=== PATIENT | female | born 1970 | race Caucasian/White ===

== ENCOUNTER 2023-01-16 15:14 | Outpatient (OUT) | payer OTHER, SELFPAY ==
--- NOTE | 2023-01-16 15:48 | XR_ITS ---
The [address] [address] Patient Name: LILIANE IRAHETA MRN: [id number] date: 1970 Sex: F Assigned Patient Location: [facility] Current Patient Location: Accession/Order Number: [id number] Exam Date: 01/16/2023 15:48 Report Date: 01/17/2023 08:19 At the request of: CYNTHIA HARKINS Procedure: XR foot LT min 3V PROCEDURE: XR foot LT min 3V HISTORY: LEFT FOOT PAIN COMPARISON: None. FINDINGS: BONES:No fracture, acute abnormality, or significant arthropathy. SOFT TISSUES:No visible soft tissue swelling. EFFUSION:None visible. OTHER: Negative. XR/XR foot LT min 3V IMPRESSION: 1. No acute bone abnormality or significant degenerative changes. Electronically authenticated by: FORREST ORELLANA Date: 01/17/2023 08:19
== END 2023-01-16 15:15 | disposition home or self-care (01) ==
PROVIDERS: Visit Provider Podiatrist Foot & Ankle Surgery
DX: M79.672 Pain in left foot (principal)
CPT/HCPCS: 73630

== ENCOUNTER 2023-02-01 15:48 | Outpatient (OUT) | payer OTHER, SELFPAY ==
--- NOTE | 2023-02-01 15:53 | MR_ITS ---
The [address] [address] Patient Name: LILIANE IRAHETA MRN: [id number] date: 1970 Sex: F Assigned Patient Location: MRI Current Patient Location: Accession/Order Number: [id number] Exam Date: 02/01/2023 16:00 Report Date: 02/02/2023 00:37 At the request of: CYNTHIA HARKINS Procedure: MR foot LT wo con EXAM: MR foot LT wo con HISTORY: Sesamoiditis, Heillux Limitus COMPARISON: 01/16/2023 radiograph TECHNIQUE: MRI images obtained with multiple sequences. Noncontrast MRI of the left foot. Sequences obtained by standard department protocol. FINDINGS: Normal alignment of the bones of the foot. No significant joint degeneration. Lisfranc ligament is intact. Extensor, flexor and peroneal tendons are intact. Anterior and posterior syndesmotic ligaments are intact. Anterior talofibular, posterior talofibular and calcaneofibular ligaments are intact. Achilles tendon and plantar fascia are intact. No ankle joint effusion. No definitive acute bone marrow edema. There is limitation to the examination for evaluation of bone marrow edema due to the lack of STIR imaging. No acute bone marrow edema of the sesamoid bones or about the first metatarsophalangeal joint. MR/MR foot LT wo con IMPRESSION: 1. No acute tendinous or ligamentous abnormality of the foot. No significant joint degeneration. 2. Normal alignment of the bones of the foot. 3. No definitive acute bone marrow edema. There is limitation to the examination for evaluation of bone marrow edema due to the lack of STIR sequence. Electronically authenticated by: PIERRE CANADA Date: 02/02/2023 00:37
== END 2023-02-01 15:49 | disposition home or self-care (01) ==
LOC: MRI 15:48
PROVIDERS: Visit Provider Podiatrist Foot & Ankle Surgery
DX: M25.561 Pain in right knee (principal); M25.872 Other specified joint disorders, left ankle and foot
CPT/HCPCS: 73560; 73718

== ENCOUNTER 2023-02-01 16:00 | Outpatient (OUT) | payer OTHER, SELFPAY ==
--- NOTE | 2023-02-01 16:38 | XR_ITS ---
The [address] [address] Patient Name: LILIANE IRAHETA MRN: [id number] date: 1970 Sex: F Assigned Patient Location: [facility] Current Patient Location: MRI Accession/Order Number: [id number] Exam Date: 02/01/2023 16:42 Report Date: 02/02/2023 05:51 At the request of: RUBY JEFFERSON Procedure: XR knee RT 2V EXAM: XR knee RT 2V HISTORY: right lateral knee pain; M25.561 COMPARISON: None. TECHNIQUE: 2 views of the right knee were obtained. FINDINGS: No acute fracture or dislocation is seen. The joint spaces are preserved. There is no significant right knee joint effusion. XR/XR knee RT 2V IMPRESSION: 1. No acute or significant abnormality of the right knee is seen. If there is concern for internal derangement, a nonemergent outpatient MRI is recommended. Electronically authenticated by: Jamar IRIZARRY Date: 02/02/2023 05:51
== END 2023-02-01 16:01 | disposition home or self-care (01) ==
LOC: RAD 16:02
DX: M25.561 Pain in right knee (principal)
CPT/HCPCS: 73560

== ENCOUNTER 2023-04-23 14:27 | Outpatient (OUT) | payer OTHER, SELFPAY ==
--- NOTE | 2023-04-23 14:34 | ECG_ITS ---
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
--- NOTE | 2023-04-23 15:14 | P.GSHP_ITS ---
History of Present Illness History of Present Illness Chief complaint: other specified joint disorders left foot Narrative: Patient presents for preadmission testing. Please see HPI from Dr. Mcdonough dated 04/11/2023. Review of Systems ROS Narrative Please see ROS from Dr. Mcdonough dated 04/11/2023. [facility] Medical History (Updated 04/23/23 @ 15:17 by Carmen Ibrahim NP) Other specified joint disorders, left ankle and foot ?M25.872 - Other specified joint disorders, left ankle and foot (ICD-10) Toe deformity ?M20.60 - Acquired deformities of toe(s), unspecified, unspecified foot (ICD- 10) Left foot pain ?M79.672 - Pain in left foot (ICD-10) Carpal tunnel syndrome ?G56.00 - Carpal tunnel syndrome, unspecified upper limb (ICD-10) Back pain ?M54.9 - Dorsalgia, unspecified (ICD-10) DDD (degenerative disc disease) Insomnia ?G47.00 - Insomnia, unspecified (ICD-10) Migraine ?G43.909 - Migraine, unspecified, not intractable, without status migrainosus (ICD-10) Heartburn ?R12 - Heartburn (ICD-10) Heart murmur ?R01.1 - Cardiac murmur, unspecified (ICD-10) Surgical History (Updated 04/23/23 @ 14:55 by Carmen Ibrahim NP) H/O oral surgery ?Z98.890 - Other specified postprocedural states (ICD-10) H/O hand surgery ?Z98.890 - Other specified postprocedural states (ICD-10) S/P cubital tunnel release ?Z98.890 - Other specified postprocedural states (ICD-10) History of carpal tunnel release ?Z98.890 - Other specified postprocedural states (ICD-10) History of hysterectomy ?Z90.710 - Acquired absence of both cervix and uterus (ICD-10) Family History (Updated 04/23/23 @ 14:55 by Carmen Ibrahim NP) Other Family history of breast cancer Family history of hypertension Family history of myocardial infarction Social History (Updated 04/23/23 @ 14:49 by Carmen Ibrahim NP) Within the past year, how often did you have a drink containing alcohol: 2-3 times a week Smoking status: Never smoker Non-prescribed substance use: denies use Previous occupational history: Teacher Highest level of school completed/degree received: Bachelor's degree Meds Home Medications and Allergies Home Medications Medication Instructions Recorded Confirmed Type gabapentin 300 mg capsule 300 mg PO QPM 04/23/23 04/23/23 History meloxicam 15 mg tablet 15 mg PO DAILY 04/23/23 04/23/23 History trazodone 50 mg tablet 50 mg PO QPM 04/23/23 04/23/23 History Allergies Allergy/AdvReac Type Severity Reaction Status Date / Time No Known Drug Allergies Allergy Verified 04/23/23 14:45 Exam Narrative Exam Narrative: Constitutional: Awake, alert, comfortable, well-appearing, nontoxic, interactive, vital signs as charted Head: Normocephalic, atraumatic Neck: Supple, normal appearance, normal range of motion, no meningeal signs, no lymphadenopathy Respiratory: No respiratory distress, breath sounds clear Cardiovascular: Regular rate and rhythm, strong and regular heart tones Skin: No rashes or induration, no lesions, only visible skin inspected Neuro: No neurological deficits, normal sensation Psychiatric: Oriented ?3, normal affect Assessment and Plan Assessment and Plan (1) Left foot pain: (2) Toe deformity: (3) Other specified joint disorders, left ankle and foot: Plan Left cheilectomy of 1st metatarsal phalangeal joint with soft tissue balancing as needed scheduled with Dr. Mcdonough 04/26/2023.
[2023-04-23 15:45] LABS: Anion Gap 9.5; BUN Creatinine Ratio 19.1; Carbon Dioxide 31.2 mmol/L (21.0-32.0); Chloride 104 mmol/L (98-107); Estimated GFR (African America >60 (>=60); Estimated GFR (Non-African Ame >60 (>=60); Glucose 70 mg/dL (74-106); Potassium 3.7 mmol/L (3.5-5.1); Sodium 141 mmol/L (136-145)
== END 2023-04-23 14:28 | disposition home or self-care (01) ==
LOC: PST 14:31
PROVIDERS: Visit Provider Podiatrist Foot & Ankle Surgery
DX: Z01.810 Encounter for preprocedural cardiovascular examination (principal); Z01.812 Encounter for preprocedural laboratory examination; Z01.818 Encounter for other preprocedural examination; M25.872 Other specified joint disorders, left ankle and foot; M20.5X2 Other deformities of toe(s) (acquired), left foot
CPT/HCPCS: 80048; 93005; G0463

== ENCOUNTER 2023-04-26 06:33 | Day surgery (SDC) | payer OTHER, SELFPAY ==
[2023-04-23 15:09] VITALS: BP 110/73; PULSE 77; RESP 16; TEMP 36.4; O2SAT 99; BMI 24.7
[2023-04-26] VITALS (13 sets, daily range): BP systolic 119–154; BP diastolic 68–94; PULSE 74–94; RESP 12–22; TEMP 35.8–36.3; O2SAT 96–99
[2023-04-26 06:59] LABS: Glucometer 98 mg/dL (74-106)
[2023-04-26] MEDS: LACTATED RINGER'S SOLUTION 1,000 ML 50 ML IV (07:17)
[2023-04-26] MEDS: CEFAZOLIN SODIUM/DEXTROSE,ISO 2 GM/50 ML PIGGYBACK IV (07:28)
[2023-04-26] MEDS: LIDOCAINE HCL 1% 100 MG/10 ML MDV 20 ML INJ (07:56)
[2023-04-26] MEDS: BUPIVACAINE HCL 0.5% PF 50 MG/10 ML VIAL 20 ML INJ (08:23)
--- NOTE | 2023-04-26 08:44 | XR_ITS ---
The [address] [address] Patient Name: LILIANE IRAHETA MRN: [id number] date: 1970 Sex: F Assigned Patient Location: [facility] Current Patient Location: Accession/Order Number: [id number] Exam Date: 04/26/2023 08:45 Report Date: 04/28/2023 05:23 At the request of: NESS GU Procedure: XR foot LT min 3V PROCEDURE: XR foot LT min 3V HISTORY: Postop x-ray pacu COMPARISON: XR foot left 01/16/2023 FINDINGS: BONES:Bunionectomy. SOFT TISSUES:Soft tissue swelling and small amount of subcutaneous air medial to the head of the first metatarsal and first proximal phalanx consistent with post surgery. EFFUSION:None visible. OTHER: Negative. XR/XR foot LT min 3V IMPRESSION: 1. Left first metatarsal bunionectomy with expected post surgical findings. Electronically authenticated by: FORREST ORELLANA Date: 04/28/2023 05:23
[2023-04-26 08:45] LABS: Glucometer 97 mg/dL (74-106)
--- NOTE | 2023-04-26 09:11 | PM.ORONB ---
Brief Operative Note Date of procedure: 04/26/23 Pre-op diagnosis: left hallux limitus Post-op diagnosis: same as pre-op Procedure: PROCEDURE PERFORMED: left 1st metatarsophalangeal joint cheilectomy INDICATION FOR PROCEDURE: patient is a healthy 53-year-old female has had worsening pain and dysfunction associated with her left great toe. Despite nonoperative treatment including shoe and activity modification, OTC pain medicine such as ibuprofen/Tylenol as well as prednisone taper pain only progressed. We discussed the potential risks and benefits of surgical versus continued nonsurgical treatment. Specifically, we discussed 1st MPJ fusion versus cheilectomy. Given arthritis only seem to involve the extra-articular aspects of the joint believe cheilectomy was a reasonable option and the patient wished to proceed with the above procedures. INTRAOPERATIVE FINDINGS: inflammation and synovitis surrounding the capsule was notable. Cartilage of the 1st MPJ appeared healthy with slight thinning of the dorsal aspect. Dorsal medial exostosis notable. Once the exostosis and diseased cartilage was excised to ninety degrees of dorsiflexion of the great toe was obtained on the table. PROCEDURE IN DETAIL: Patient was identified in pre op and consent was reviewed. Correct side and site were identified and marked. Pre-op antibiotics were started. Patient was brought to OR suite and place on table in a supine position. General anesthesia was administered. Calf tourniquet applied. Operative extremity was prepped and draped in usual sterile fashion. Formal time-out was performed and the foot/ankle were exsanguinated and tourniquet inflated. Incision created over dorsal aspect of the 1st MPJ. Bleeders coagulated. EHL protected throughout the procedure. Capsulotomy performed and McGlammry elevator inserted into 1st MPJ. A saw was used to remove the dorsal lip of the 1st metatarsal head of the dorsal 1st metatarsal head. in addition sagittal saw was used to remove the exostosis on the dorsal medial aspect of the head.ROM on the table showed 90 degrees of dorsiflexion. Any additional exostosis were also removed. The surgical site was irrigated with copious amounts of sterile saline. Absorbable deep sutures were used to close fascia. The tourniquet was dropped and a prompt hyperemic response was noted. Skin was then closed in layers and a dry sterile dressing consisting of Xeroform, 4 x 4's, Kerlix and Paul wrap were applied. Cam boot will be applied in the recovery room. Patient tolerated procedure and anesthesia well and was transferred to the recovery room with vital signs stable and brisk capillary refill to the toes. POSTOPERATIVE PLAN: Discharge home under family's care Post op instructions provided verbally and written prescription(s) were placed in chart Weightbearing as tolerated in cam boot Follow-up in 1-3 week Anesthesia: General-LMA Surgeon: Syed Mcdonough Paradi Operator: William Walter Estimated blood loss (mL): 10 Pathology: other (bone from 1st metatarsal) Condition: stable Disposition: PACU
== END 2023-04-26 09:04 | disposition home or self-care (01) ==
PROVIDERS: Visit Provider Podiatrist Foot & Ankle Surgery
PROC: (CPT 1480; principal; 2023-04-26 07:30)
DX: M25.872 Other specified joint disorders, left ankle and foot (principal); M20.5X2 Other deformities of toe(s) (acquired), left foot; I10 Essential (primary) hypertension; R12 Heartburn; R01.1 Cardiac murmur, unspecified; G47.00 Insomnia, unspecified; Z90.710 Acquired absence of both cervix and uterus; M51.9 Unspecified thoracic, thoracolumbar and lumbosacral intervertebral disc disorder
CPT/HCPCS: 28289; 36415; 73630; 82948; 88304; 88311; 99999; J1094; J2704

== ENCOUNTER 2023-07-25 14:14 | Outpatient (RCR) | payer OTHER, SELFPAY | END 2023-10-16 13:45 | disposition home or self-care (01) | LOC: PT 14:14 | PROVIDERS: Visit Provider Podiatrist Foot & Ankle Surgery | DX: M20.5X2 Other deformities of toe(s) (acquired), left foot (principal) | CPT/HCPCS: 97110; 97112; 97140; 97162; 97164 ==

== ENCOUNTER 2023-12-28 12:16 | Outpatient (OUT) | payer OTHER, SELFPAY ==
--- NOTE | 2023-12-28 | XR_ITS ---
[address] [address] Patient Name: LILIANE IRAHETA MRN: [id number] date: 1970 Sex: F Assigned Patient Location: [facility] Current Patient Location: Accession/Order Number: [id number] Exam Date: 12/28/2023 12:50 Report Date: 01/01/2024 07:25 At the request of: CYNTHIA HARKINS Procedure: XR foot LT min 3V PROCEDURE: XR ankle LT min 3V, XR foot LT min 3V COMPARISON: 04/26/2023 HISTORY: Lt Ankle Pain FINDINGS: BONES:Shave osteotomy medial head of the first metatarsal. No acute fracture or dislocation. Minimal degenerative changes. SOFT TISSUES:Negative. No visible soft tissue swelling. EFFUSION:None visible. OTHER: Negative. XR/XR foot LT min 3V IMPRESSION: No acute abnormality of the foot or ankle Electronically authenticated by: GEMA GRAVES Date: 01/01/2024 07:25
--- NOTE | 2023-12-28 | XR_ITS ---
[address] [address] Patient Name: LILIANE IRAHETA MRN: [id number] date: 1970 Sex: F Assigned Patient Location: [facility] Current Patient Location: Accession/Order Number: [id number] Exam Date: 12/28/2023 12:50 Report Date: 01/01/2024 07:25 At the request of: CYNTHIA HARKINS Procedure: XR ankle LT min 3V PROCEDURE: XR ankle LT min 3V, XR foot LT min 3V COMPARISON: 04/26/2023 HISTORY: Lt Ankle Pain FINDINGS: BONES:Shave osteotomy medial head of the first metatarsal. No acute fracture or dislocation. Minimal degenerative changes. SOFT TISSUES:Negative. No visible soft tissue swelling. EFFUSION:None visible. OTHER: Negative. XR/XR ankle LT min 3V IMPRESSION: No acute abnormality of the foot or ankle Electronically authenticated by: GEMA GRAVES Date: 01/01/2024 07:25
--- OUTSIDE RECORDS SUMMARY | 2023-12-28 12:25 | XMS_ITS | CCD ---
Author Organization [facility] Care Team Providers Care Denture Technician Name Role Phone Rk Osorio Unavailable Provider, Ordering Unavailable JuliannaRamsesew Unavailable Julianna, DO Santi N Primary Care Provider [phone] Julianna, DO Santi N Attending Provider Julianna, DO Santi N Primary Care Provider Julianna, DO Santi N Attending Provider TARSHA Mcdonough Attending Provider [phone] Julianna, DO Santi N Primary Care Provider [phone] Julianna, DO Santi N Attending Provider Julianna, DO Santi N Primary Care Provider Julianna, DO Santi N Primary Care Provider Julianna, DO Santi N Attending Provider Julianna, DO Santi N Primary Care Provider [phone] Julianna, DO Santi N Attending Provider [phone] Julianna, Santi N Admitting Unavailable Julianna, Santi N Primary Care Unavailable Julianna, Santi N Attending Unavailable Julianna, Santi N Admitting Unavailable Julianna, Santi N Primary Care Unavailable Julianna, Santi N Attending Unavailable Julianna, Santi N Admitting Unavailable Julianna, Santi N Primary Care Unavailable Julianna, Santi N Attending Unavailable Julianna, Santi N Admitting Unavailable Julianna, Santi N Primary Care Unavailable Julianna, Santi N Attending Unavailable Julianna, Santi N Primary Care Unavailable Syed Mcdonough Admitting Unavailable Syed Mcdonough Attending Unavailable Santi Levine Primary Care Unavailable Santi Levine Attending Unavailable Santi Levine Admitting Unavailable Medications Current Medications Medication Drug Class(es) Dates Sig (Normalized) Sig (Original) erythromycin 0.005 mg/mg ophthalmic ointment (2 sources) Macrolide, Macrolide Antimicrobial Start: 07-25-2021 Erythromycin 5 MG/GM 1 application into the lower eyelid of affected eye Ophthalmic Four times a day for 10 day(s) Jul, Active fluconazole 150 mg oral tablet (8 sources) Azole Antifungal Start: 10-18-2023 Fluconazole Active 150 MG PO Q3D October 18, 2023 3:42pm may repeat second dose 72 hrs after first dose if symptoms persist Start: 08-28-2023 End: 10-09-2023 Fluconazole Discontinued 150 MG PO Q3D August 28, 2023 12:00am October 09, 2023 10:16am may repeat second dose 72 hrs after first dose if symptoms persist meloxicam 15 mg oral tablet (10 sources) Nonsteroidal Anti-inflammatory Drug take 1 tablet by mouth every twenty-four hours Meloxicam 15 MG 1 tablet Orally Once a day Active nitrofurantoin, macrocrystals 25 mg / nitrofurantoin, monohydrate 75 mg oral capsule (2 sources) Nitrofuran Antibacterial Start: 2023 take 1 capsule by mouth every twelve hours at mealtime Nitrofurantoin Monohyd/M-Cryst (Macrobid) 100 mg capsule Active 100 MG PO Every 12 hours 10 October 18, 2023 12:00am must administer with a meal/food traZODone hydrochloride 50 mg oral tablet (20 sources) Serotonin Reuptake Inhibitor Start: 2023 End: 2023 take 50 mg by mouth once daily at bedtime Trazodone Active 50 MG PO Daily at bedtime August 28, 2023 9:43am take 1 tablet by shonda th every twenty-four hours traZODone HCl 50 MG 1 tablet at bedtime as needed Orally Once a day for 90 days Active Completed/Discontinued Medications Medication Drug Class(es) Dates Sig (Normalized) Sig (Original) aspirin 81 mg delayed release oral tablet (11 sources) Platelet Aggregation Inhibitor, Nonsteroidal Anti-inflammatory Drug Start: 05-08-2023 End: 08-28-2023 take 1 tablet by mouth twice daily Aspirin (Adult Aspirin Regimen) 81 mg tablet,delayed release (DR/EC) Discontinued 81 MG PO Twice daily May 08, 2023 12:00am August 28, 2023 9:17am gabapentin 300 mg oral capsule (20 sources) Anti-epileptic Agent Start: 07-04-2023 End: 08-28-2023 take 1 capsule by mouth once daily Gabapentin Discontinued 0 .ROUTE .COMPLEX July 04, 2023 12:49pm August 28, 2023 9:42am TAKE 1 CAPSULE BY MOUTH ONCE DAILY FOR 30 DAYS WITH 300MG CAPS FOR A TOTAL OF 400MG Start: 07-04-2023 take 1 capsule by mo uth once daily Gabapentin Active 0 .ROUTE .COMPLEX July 04, 2023 12:49pm TAKE 1 CAPSULE BY MOUTH ONCE DAILY FOR 30 DAYS WITH 300MG CAPS FOR A TOTAL OF 400MG Start: 06-08-2023 End: 07-04-2023 Gabapentin Discontinued 100 MG PO Daily June 08, 2023 12:00am July 04, 2023 12:49pm Take 100mg caps along with 300mg caps for total of 400mg caps x 30 days. Start: 05-08-2023 End: 08-28-2023 take 1 capsule by mouth once daily Gabapentin Discontinued 300 MG PO Daily June 08, 2023 11:42am July 30, 2023 8:17am 1 capsule Orally Once a day take 1 capsule by [facility] every twenty-four hours Gabapentin 300 MG 1 capsule Orally Once a day for 90 days Active Gabapentin Activ e methylPREDNISolone acetate 80 mg/ml injectable suspension (2 sources) Corticosteroid Start: 03-08-2023 DEPO-Medrol Feb, 80 mg 24 hr nitroglycerin 0.2 mg/hr transdermal system (16 sources) Nitrate Vasodilator Start: 05-08-2023 End: 08-28-2023 Nitroglycerin Discontinued 1 PATCH TRANSDERML Daily May 08, 2023 12:00am August 28, 2023 9:16am FreeTextSi patch to skin remove after 12 hours Transdermal Once a day; Note: Source Status: Taking; Refills: 0; Provider: Julianna Mark Start: 02-23-2023 Nitroglycerin 0.2 MG/HR 1 patch to skin remove after 12 hours Transdermal Once a day for 30 days Feb, Active ubrogepant 50 mg oral tablet (8 sources) Start: 06-04-2023 End: 08-28-2023 take 1 tablet by mouth once Ubrogepant Discontinued 50 MG PO Once June 04, 2023 12:00am August 28, 2023 9:16am Take 1 tab orally at onset of migraine. Problems Active Problems Problem Classification Problem Date Documented Date Episodic/Chronic Disorders of lipid metabolism (1 source) Mixed hyperlipidemia; Translations: [Mixed hyperlipidemia] Onset: 10-10-2023 Chronic Genitourinary symptoms and ill-defined conditions (3 sources) Other symptoms and signs involving the genitourinary system; Translations: [Other symptoms involving urinary system] Onset: 10-18-2023 10-18-2023 Episodic Joint disorders and dislocations; trauma-related (1 source) Unspecified tear of unspecified meniscus, current injury, right knee, initial encounter Episodic Menopausal disorders (6 sources) Menopausal and female climacteric states; Translations: [Symptomatic menopausal or female climacteric states] Onset: 10-10-2023 10-09-2023 Chronic Miscellaneous mental health disorders (20 sources) Chronic insomnia; Translations: [Psychophysiologic insomnia] Onset: 10-10-2023 Chronic Other aftercare (1 source) Encounter for therapeutic drug level monitoring; Translations: [Encounter for therapeutic drug level monitoring] Onset: 10-10-2023 Episodic Other and unspecified benign neoplasm (9 sources) Melanocytic nevi, unspecified; Translations: [Benign neoplasm of skin, site unspecified] 10-09-2023 Episodic Other connective tissue disease (20 sources) Lateral epicondylitis, left elbow; Translations: [Lateral epicondylitis] Onset: 10-16-2023 Episodic Other connective tissue disease (1 source) Other specified disorders of synovium and tendon, unspecified site Episodic Other connective tissue disease (11 sources) Lateral epicondylitis of left humerus; Translations: [Lateral epicondylitis, left elbow] 05-08-2023 Episodic Other connective tissue disease (2 sources) Pain in left toe(s); Translations: [Pain in limb] 06-08-2023 Episodic Other connective tissue disease (2 sources) Neuralgia and neuritis, unspecified; Translations: [Neuralgia, neuritis, and radiculitis, unspecified] 06-08-2023 Episodic Other nervous system disorders (1 source) Other chronic pain Chronic Other non-traumatic joint disorders (3 sources) Pain in right knee Episodic Other screening for suspected conditions (not mental disorders or infectious disease) (1 source) Encounter for screening mammogram for malignant neoplasm of breast Episodic Spondylosis; intervertebral disc disorders; other back problems (20 sources) Lumbosacral spondylosis; Translations: [Spondylosis without myelopathy or radiculopathy, lumbosacral region] Chronic Sprains and strains (1 source) Strain of other extensor muscle, fascia and tendon at forearm level, left arm, subsequent encounter Episodic Unclassified (1 source) Encounter for screening mammogram for malignant neoplasm of breast; Translations: [Encounter for screening mammogram for malignant neoplasm of breast] Onset: 03-12-2023 Unclassified (1 source) Pain in right knee; Translations: [Pain in right knee] Onset: 03-05-2023 Past or Other Problems Problem Classification Problem Date Documented Da te Episodic/Chronic Inflammation; infection of eye (except that caused by tuberculosis or sexually transmitteddisease) (1 source) Hordeolum externum left upper eyelid Onset: 07-25-2021 Resolved: 07-25-2021 Episodic Unclassified (5 sources) Well adult; 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 Normal [facility] Comment on above: Performed By: #### C UU #### [facility] [address] [place] [address] [place] Alanine aminotransferase [En zymatic activity/volume] in Serum or PlasmaOrdered By: Santi Levine on 10-10-2023 ALT [Catalytic activity/Vol] 20 U/L Normal [facility] Comment on above: Performed By: #### L IPID, CMP, CBC #### [facility] [address] [place] [address] [place] Albumin [Mass/volume] in Ser um or Plasma by Bromocresol green (BCG) dye binding methoOrdered By: Santiwang Levine on 10-10-2023 Albumin BCG dye [Mass/Vol] 4.6 g/dL 3.5-5.[address] [facility] Alkaline phosphatase [Enzyma tic activity/volume] in Serum or PlasmaOrdered By: Santiwang Levine on 10-10-2023 ALP [Catalytic activity/Vol] 58 U/L Normal 34-[address] [facility] Comment on above: Performed By: #### L IPID, CMP, CBC #### [address] Aspartate aminotransferase [ Enzymatic activity/volume] in Serum or PlasmaOrdered By: Santi Levine on 10-10-2023 AST [Catalytic activity/Vol] 19 U/L Normal 13-[address] [facility] Comment on above: Performed By: #### L IPID, CMP, CBC #### [address] Automated basophil %Ordered By: Santi Levine on 10-10-2023 Basophils/100 WBC (Bld) 0.9 % Normal . [facility] Comment on above: Performed By: #### L IPID, CMP, CBC #### [address] Automated basophil countOrde red By: Santi Levine on 10-10-2023 Basophils (Bld) [#/Vol] 0.0 10*3/uL Normal 0.0-0.[address] [facility] Comment on above: Result Comment: PERF ORMED BY: [place] [address] PATHOLOGIST BLOOD DONOR RECRUITER SUPERVISOR ISI NORRIS M.D. Performed By: #### L IPID, CMP, CBC #### [address] Automated blood monocyte cou ntOrdered By: Santi Levine on 10-10-2023 Monocytes (Bld) [#/Vol] 0.4 10*3/uL Normal 0.0-0.[address] [facility] Comment on above: Performed By: #### L IPID, CMP, CBC #### [address] Automated eosinophil %Ordere d By: Santi Levine on 10-10-2023 Eosinophils/100 WBC (Bld) 0.9 % Normal . [facility] Comment on above: Performed By: #### L IPID, CMP, CBC #### [address] Automated eosinophil countOr dered By: Santi Levine on 10-10-2023 Eosinophils (Bld) [#/Vol] 0.0 10*3/uL Normal 0.0-0.[address] [facility] Comment on above: Performed By: #### L IPID, CMP, CBC #### [address] Automated monocyte %Ordered By: Santi Levine on 10-10-2023 Monocytes/100 WBC (Bld) 7.9 % Normal . [facility] Comment on above: Performed By: #### L IPID, CMP, CBC #### [address] Automated neutrophil %Ordere d By: Santi Levine on 10-10-2023 Neutrophils/100 WBC (Bld) 61.0 % Normal . [facility] Comment on above: Performed By: #### L IPID, CMP, CBC #### [address] Bilirubin.total [Mass/volume ] in Serum or PlasmaOrdered By: Santi Levine on 10-10-2023 Bilirubin [Mass/Vol] 0.6 mg/dL Normal 0.3-1.0 [facility] Comment on above: Performed By: #### L IPID, CMP, CBC #### [address] Calcium [Mass/volume] in Ser um or PlasmaOrdered By: Santi Levine on 10-10-2023 Calcium [Mass/Vol] 9.7 mg/dL Normal 8.6-10.3 [facility] Comment on above: Performed By: #### L IPID, CMP, CBC #### [facility] [address] [place] [address] [place] Carbon dioxide, total [Moles /volume] in Serum or PlasmaOrdered By: Santi Levine on 10-10-2023 CO2 [Moles/Vol] 30.8 mmol/L Normal 21.0-31.0 [facility] Comment on above: Performed By: #### L IPID, CMP, CBC #### [facility] [address] [place] [address] [place] Chloride [Moles/volume] in S olamide or PlasmaOrdered By: Santi Levine on 10-10-2023 Chloride [Moles/Vol] 104 mmol/L Normal 98-107 [facility] Comment on above: Performed By: #### L IPID, CMP, CBC #### [facility] [address] [place] [address] [place] Cholesterol [Mass/volume] in Serum or PlasmaOrdered By: Santi Levine on 10-10-2023 Cholesterol [Mass/Vol] 203 mg/dL High 140-200 [facility] Comment on above: Chol less than 200 m g/dl low riskChol 201-239 mg/dl borderline riskChol 240 mg/dl and greater high risk Result Comment: Chol less than 200 mg/dl low risk Chol 201-239 mg/dl borderline risk Chol 240 mg/dl and greater high risk Performed By: #### L IPID, CMP, CBC #### [facility] [address] [place] [address] [place] Cholesterol in LDL Calc [Mas s/Vol]Ordered By: Santi Levine on 10-10-2023 Cholesterol in LDL [Mass/Vol] 120 mg/dL High 0-[address] [facility] Comment on above: LDL ATP III CLASSIFI CATIONLDL less than 100 mg/dL OptimalLDL 100-129 mg/dL Near or above optimalLDL 130-159 mg/dL Borderline highLDL 160-189 mg/dL HighLDL greater than 189 mg/dL Very high Cholesterol in VLDL Calc [Ma ss/Vol]Ordered By: Santi Levine on 10-10-2023 Cholesterol in VLDL [Mass/Vol] 13 mg/dL [facility] Complete Blood Count Auto Di ffon 10-10-2023 Mean Corpuscular HGB Conc 33.5 g/dL Normal 32.0-35.0 [facility] Comment on above: Performed By: #### L IPID, CMP, CBC #### [address] NRBC% 0.3 /100{WBC} Normal 0-0.5 [facility] Comment on above: Performed By: #### L IPID, CMP, CBC #### [address] Comprehensive Metabolic Pane [place] 10-10-2023 Albumin [Mass/Vol] 4.6 g/dL Normal 3.5-5.7 [facility] Comment on above: Performed By: #### L IPID, CMP, CBC #### [address] GFR/1.73 sq M.predicted MDRD (S/P/Bld) [Vol rate/Area] mL/min/{1.73_m2} Normal [facility] Comment on above: Performed By: #### L IPID, CMP, CBC #### [address] Creatinine [Mass/volume] in Serum or PlasmaOrdered By: Santi Levine on 10-10-2023 Creatinine [Mass/Vol] 0.82 mg/dL Normal 0.60-1.20 [facility] Comment on above: Performed By: #### L IPID, CMP, CBC #### [address] Erythrocyte distribution wid th [Ratio] by Automated countOrdered By: Santi Levine on 10-10-2023 Erythrocyte distribution width (RBC) [Ratio] 12.6 % Normal 11.9-15.[address] [facility] Comment on above: Performed By: #### L IPID, CMP, CBC #### [place] [address] [place] Erythrocytes [#/volume] in B lood by Automated countOrdered By: Santi Levine on 10-10-2023 RBC (Bld) [#/Vol] 4.33 10*6/uL Normal 3.60-5.00 [facility] Comment on above: Performed By: #### L KYREE SHANNON, CBC #### [address] Glucose [Mass/volume] in Ser um or PlasmaOrdered By: Santi Levine on 10-10-2023 Glucose [Mass/Vol] 94 mg/dL Normal 70-100 [facility] Comment on above: ADA recommended refe rence rangeRandom Glucose Reference Range is dependent on time and content of last meal. Glucose of more than 200 mg/dL in a nonstressed, ambulatory subject supports the diagnosis of Diabetes Mellitus. Result Comment: [place] om Glucose Reference Range is dependent on time and content of last meal. Glucose of more than 200 mg/dL in a nonstressed, ambulatory subject supports the diagnosis of Diabetes Mellitus. ADA recommended reference range Performed By: #### L KYREE SHANNON, CBC #### [address] Hematocrit [Volume Fraction] of Blood by Automated countOrdered By: Santi Levine on 10-10-2023 Hematocrit (Bld) [Volume fraction] 41.0 % Normal 34.0-46.[address] [facility] Comment on above: Performed By: #### L KYREE SHANNON, CBC #### [address] Hemoglobin [Mass/volume] in BloodOrdered By: Santi Levine on 10-10-2023 Hemoglobin (Bld) [Mass/Vol] 13.7 g/dL Normal 11.8-15.[address] [facility] Comment on above: Performed By: #### L KYREE SHANNON, CBC #### [address] [place] 10-10-2023 L Specimen: [id number] Received: 10/12/23 Status: SOUT Req Num: [id number] Spec Type: Surgical Subm Dr: Santi Levine, DO Tissues: A Skin-Other than Cyst, tag, debridement or plastic repair (LEFT UPPER THIGH) Procedures: HE, Gross/Micro L4 Age/ Patient Sex Location Account Attending Physician Jaimie Coleman 53/F [facility] [id number] Santi Levine DO SPEC NUM: [id number] RECD: 10/12/23 STATUS: VINH HOOKERJorje NUM: [id number] JOSE LUIS: 10/10/[address] [facility] [address]: Santi Levine DO ENTERED: 10/12/[address] [facility] [address]: SPEC TYPE: Surgical DEPT: S ENTERED BY: [id number] RECV BY: [id number] ORDERED: HE, Gross/Micro L4 ORDERED: HE, Gross/Micro L4 Pathological Diagnosis Skin, left upper thigh, shave excision: -Benign lichenoid keratosis (LPLK) -Adequately excised, and no evidence of malignancy or squamous dysplasia identified Clinical Information Changing skin nevus Gross Description The specimen was received in formalin with the patient's name and left upper thigh is a taylor raised shave biopsy measuring 0.6 x 0.5 x 0.2 cm. The resection margin is inked black. The specimen is trisected. The specimen is entirely submitted in cassette A1. Microscopic Description Microscopic examinations are performed supporting the above interpretation ---- Specimen: [id number] Received: 10/12/23 Status: VINH Hookerjorje Num: [id number] Spec Type: Surgical Subm Dr: Santi Levine DO Tissues: A Skin-Other than Cyst, tag, debridement or plastic repair (LEFT UPPER THIGH) Procedures: Everett BROWNE/Serg L4 ---- Patient: Jaimie Coleman [id number] (Continued) ---- Specimen: [id number] Received: 10/12/23 (Continued) Signed (signature on file) Luis A Covington MD 10/15/23 1059 ---- Specimen: [id number] Received: 10/12/23 Status: VINH Thomas Num: [id number] Spec Type: Surgical Subm Dr: Santi Levine DO Tissues: A Skin-Other than Cyst, tag, debridement or plastic repair (LEFT UPPER THIGH) Procedures: Everett BROWNE/Serg Caal ---- Patient: Jaimie Coleman [id number] (Continued) ---- Specimen: [id number] Received: 10/12/23 (Continued) CPT Codes 27879 ---- ---- Specimen: [id number] Received: 10/12/23 Status: VINH Thomas Num: [id number] Spec Type: Surgical Subm Dr: Santi Levine DO Tissues: A Skin-Other than Cyst, tag, debridement or plastic repair (LEFT UPPER THIGH) Procedures: Everett BROWNE/Serg L4 ---- Patient: Jaimie Coleman [id number] (Continued) ---- Signed (signature on file) Doug-Roque Covington MD 10/15/23 1059 Normal [facility] Leukocytes [#/volume] correc immanuel for nucleated erythrocytes in Blood by Automated counOrdered By: Santi Levine on 10-10-2023 WBC corrected for nucl RBC Auto (Bld) [#/Vol] 4.5 10*3/uL 3.8-11.[address] [facility] Leukocytes [#/volume] in Blo od by Automated countOrdered By: Santi Levine on 10-10-2023 WBC (Bld) [#/Vol] 4.5 10*3/uL Normal 3.8-11.6 [facility] Comment on above: Performed By: #### L MIRTHA CMP, CBC #### [facility] [address] Lipid Panelon 10-10-2023 LDL Cholesterol,Calculated 120 mg/dL High 0-100 [facility] Comment on above: Result Comment: LDL ATP III CLASSIFICATION LDL less than 100 mg/dL Optimal LDL 100-129 mg/dL Near or above optimal LDL 130-159 mg/dL Borderline high LDL 160-189 mg/dL High LDL greater than 189 mg/dL Very high Performed By: #### L IPTUAN CMP, CBC #### [facility] [address] Triglyceride w/Reflex 68 mg/dL Normal 0-149 [facility] Comment on above: Result Comment: TRIG ATP III CLASSIFICATION TRIG less than 150 mg/dL Normal TRIG 150-199 mg/dL Borderline high TRIG 200-500 mg/dL High TRIG greater than 500 mg/dL Very high Standard traceable to the Center for Disease Conrtrol and Prevention (CDC) test method. Performed By: #### L IPID, CMP, CBC #### [facility] [address] [place] [id number] [facility] VLDL CHOLESTEROL 13 mg/dL Normal [facility] Comment on above: Performed By: #### L IPID, CMP, CBC #### [address] Lymphocytes [#/volume] in Bl ood by Automated countOrdered By: Santi Levine on 10-10-2023 Lymphocytes (Bld) [#/Vol] 1.3 10*3/uL Normal 1.00-4.[address] [facility] Comment on above: Performed By: #### L IPID, CMP, CBC #### [address] Lymphocytes/100 leukocytes i n Blood by Automated countOrdered By: Santi Levine on 10-10-2023 Lymphocytes/100 WBC (Bld) 29.3 % Normal . [facility] Comment on above: Performed By: #### L IPID, CMP, CBC #### [address] MCH [Entitic mass] by Automa immanuel countOrdered By: Santi Levine on 10-10-2023 MCH (RBC) [Entitic mass] 31.8 pg Normal 24.7-34.[address] [facility] Comment on above: Performed By: #### L IPID, CMP, CBC #### [address] MCHC Auto (RBC) [Mass/Vol]Or dered By: Santi Levine on 10-10-2023 MCHC (RBC) [Mass/Vol] 33.5 g/dL 32.0-35.0 [facility] MCV [Entitic volume] by Auto mated countOrdered By: Santi Levine on 10-10-2023 MCV (RBC) [Entitic vol] 94.9 fL Normal 80-100 [facility] Comment on above: Performed By: #### L IPID, CMP, CBC #### [address] Neutrophils [#/volume] in Bl ood by Automated countOrdered By: Santi Levine on 10-10-2023 Neutrophils (Bld) [#/Vol] 2.8 10*3/uL Normal 1.8-7.[address] [facility] Comment on above: Performed By: #### L IPID, CMP, CBC #### [address] No Panel InformationOrdered By: Santi Levine on 10-10-2023 Estimated GFR (CKD-EPI) > 60.0 mL/Min [facility] Creatinine Clearance (Chem N/A [facility] Nucleated erythrocytes [Pres ence] in Blood by Automated countOrdered By: Santi Levine on 10-10-2023 Nucleated RBC Auto Ql (Bld) 0.3 /100{WBC} 0-0.[address] [facility] Platelet mean volume [Entiti c volume] in Blood by Automated countOrdered By: Santi Levine on 10-10-2023 Platelet mean volume (Bld) [Entitic vol] 9.1 fL Normal 6.3-10.[address] [facility] Comment on above: Performed By: #### L IPID, CMP, CBC #### [facility] [address] [place] [address] Platelets [#/volume] in Bloo d by Automated countOrdered By: Santi Levine on 10-10-2023 Platelets (Bld) [#/Vol] 222 10*3/uL Normal 150-[address] [facility] Comment on above: Performed By: #### L IPID, CMP, CBC #### [address] Potassium [Moles/volume] in Serum or PlasmaOrdered By: Santi Levine on 10-10-2023 Potassium [Moles/Vol] 4.2 mmol/L Normal 3.5-5.1 [facility] Comment on above: Performed By: #### L IPID, CMP, CBC #### [place] [address] [place] Protein [Mass/volume] in Ser um or PlasmaOrdered By: Santi Levine on 10-10-2023 Protein [Mass/Vol] 7.6 g/dL Normal 6.4-8.9 [facility] Comment on above: Performed By: #### L IPID, CMP, CBC #### [facility] [address] Serum globulin measurement b y calculation (mass/volume)Ordered By: Santi Levine on 10-10-2023 Globulin (S) [Mass/Vol] 3.0 g/dL Normal [facility] Comment on above: Performed By: #### L IPID, CMP, CBC #### [facility] [address] [place] [address] Serum or plasma albumin/glob ulin mass ratioOrdered By: Santi Levine on 10-10-2023 Albumin/Globulin [Mass ratio] 1.5 {ratio} Normal [facility] Comment on above: Performed By: #### L IPID, CMP, CBC #### [address] Serum or plasma anion gap de terminationOrdered By: Santi Levine on 10-10-2023 Anion gap [Moles/Vol] 9.4 mmol/L Normal 6.0-15.0 [facility] Comment on above: Performed By: #### L IPID, CMP, CBC #### [address] Serum or plasma high density lipoprotein (HDL) cholesterol measurementOrdered By: Santi Levine on 10-10-2023 Cholesterol in HDL [Mass/Vol] 69 mg/dL Normal 23-[address] [facility] Comment on above: HDL CHOL ATP-III CLA SSIFICATION Cardiovascular RiskHDL > or equal to 60 mg/dL LOWHDL < 40 mg/dL HIGH Result Comment: HDL CHOL ATP-III CLASSIFICATION Cardiovascular Risk HDL > or equal to 60 mg/dL LOW HDL < 40 mg/dL HIGH Performed By: #### L IPID, CMP, CBC #### [facility] [address] [place] [address] Serum or plasma total choles terol/high density lipoprotein (HDL) cholesterol mass ratOrdered By: Santi Levine on 10-10-2023 Cholesterol.total/Choles terol in HDL [Mass ratio] 2.9 {ratio} Normal <5.[address] [facility] Comment on above: Result Comment: PERF ORMED BY: [place] [address] PATHOLOGIST BLOOD DONOR RECRUITER SUPERVISOR ISI NORRIS M.D. Performed By: #### L IPID, CMP, CBC #### [address] Sodium [Moles/volume] in Ser um or PlasmaOrdered By: Santi Levine on 10-10-2023 Sodium [Moles/Vol] 140 mmol/L Normal 136-145 [facility] Comment on above: Performed By: #### L IPID, CMP, CBC #### [address] Triglyceride [Mass/volume] i n Serum or PlasmaOrdered By: Santi Levine on 10-10-2023 Triglyceride [Mass/Vol] 68 mg/dL 0-149 [facility] Comment on above: TRIG ATP III CLASSIF ICATIONTRIG less than 150 mg/dL NormalTRIG 150-199 mg/dL Borderline highTRIG 200-500 mg/dL High TRIG greater than 500 mg/dL Very highStandard traceable to the Center for Disease Conrtrol and Prevention (CDC) test method. Urea nitrogen [Mass/volume] in Serum or PlasmaOrdered By: Santi Levine on 10-10-2023 Urea nitrogen [Mass/Vol] 16 mg/dL Normal 7-[address] [facility] Comment on above: Performed By: #### L IPID, CMP, CBC #### [place] [address] [place] 04-26-2023 L Specimen: [id number] Received: 04/26/23 Status: VINH Thomas Num: [id number] Spec Type: Surgical Subm Dr: Syed Mcdonough DPM, MS Tissues: A Bone Fragments - Other than Path Fracture (LT 1ST MPJ EXOSTOSIS) Procedures: HE, Gross/Micro L3, Decalcification Age/ Patient Sex Location Account Attending Physician Jaimie Coleman 53/F LABELL [id number] Syed Mcdonough DPM, MS SPEC NUM: [id number] RECD: 04/26/23 STATUS: VINH THOMAS NUM: [id number] JOSE LUIS: 04/26/[address]: Syed Mcdonough DPM, MS ENTERED: 04/26/[address] [facility] [address]: [place],Lab SPEC TYPE: Surgical DEPT: ZULEIKA SRIVASTAVA ORDERED: PAVAN, Gross/Micro L3, Decalcification ORDERED: PAVAN, Gross/Micro L3, Decalcification Pathological Diagnosis Left first MPJ exostosis, resection: Irregular bone formation consistent with exostosis. Clinical Information Deformation of toes left foot Gross Description Received in formalin labeled with the patient's name, date of and left first MPJ exostosis is a 2.2 x 1.7 x 1.0 cm nodular, taylor-white bone with a yellow-taylor, trabecular cut surface. Seam Steamer are submitted following decalcification in one cassette labeled A1. CPT Codes 47864, 73368 ---- ---- Specimen: [id number] Received: 04/26/23 Status: VINH Martha Num: [id number] Spec Type: Surgical Subm Dr: Syed Mcdonough DPM, MS Tissues: A Bone Fragments - Other than Path Fracture (LT 1ST MPJ EXOSTOSIS) Procedures: PAVAN, Gross/Micro L3, Decalcification ---- Patient: Jaimie Coleman [id number] (Continued) ---- Signed (signature on file) Dung Jurado MD 04/30/23 1604 Normal [facility] MM screening mammo BI w/CADo n 03-22-2023 MM screening mammo BI w/CAD [facility] [place] [address] Mammography Report Signed Patient: Jaimie Coleman MR#: [id number] 5 : 1970 Acct:[id number] Age/Sex: 53 / F ADM Date: 03/12/23 Loc: [place] Room: Type: [facility] Attending Dr: Santi Levine DO Copies to: Santi Levine DO Ordering Provider: Santi Levine DO Date of Service: 03/12/23 MM/MM screening mammo BI w/CAD: Encounter for screening for cardiovascular disorders CLINICAL DATA: Screening for malignancy. SCREENING MAMMOGRAM - FULL FIELD DIGITAL WITH TOMOSYNTHESIS AND CAD COMPARISON:Mammograms dating back to 2012. Tomosynthesis craniocaudal and mediolateral oblique views of both breasts were obtained using low- dose digital technique. This examination was reviewed with the aid of CAD. The breast tissue is composed of scattered fibroglandular densities. There are no dominant masses, typically malignant calcifications or architectural distortion. There has been no significant interval change. MM/MM screening mammo BI w/CAD IMPRESSION: NO MAMMOGRAPHIC EVIDENCE OF MALIGNANCY. ROUTINE FOLLOW-UP IS RECOMMENDED IN ONE YEAR. RESULT CODE: 1 Negative DENSITY CODE: 2 (approximately 25-50% glandular) FOLLOW UP: 1YR The false-negative rate of mammography is approximately 10-percent. Management of a palpable abnormality must be based on clinical grounds. Patient was entered into a reminder system with a target due date for the next mammogram. Impression dictated by: Boby Chambers Jr., D.O.03/22/2023 11:26 AM Dictation Location: [facility] Transcribed By: [facility] 03/22/23 1126 Dictated By: Boby Chambers Jr, DO 03/22/23 1052 Signed By: 03/22/23 1126 Normal [facility] MR knee RT wo conon 03-06-19 MR knee RT wo con [facility] [place] [address] MRI Report Signed Patient: Jaimie Coleman MR#: [id number] 5 : 1970 Acct:[id number] Age/Sex: 53 / F ADM Date: 03/05/23 Loc: MR Room: Type: [facility] Attending Dr: Santi Levine DO Copies to: Santi Levine DO Ordering Provider: Santi Levine DO Date of Service: 03/05/23 MR/MR knee RT wo con: M25.561 EXAMINATION: MRI OF THE RIGHT KNEE CLINICAL DATA: Right knee pain. Positive Omid's test COMPARISON: Right knee series 02/01/2023 TECHNIQUE: Multiecho, multiplanar imaging was performed with use of an extremity coil. No contrast was administered. FINDINGS: Joint:Minimal joint fluid. Articular cartilage of the patella appears normal. Articular cartilage of the femur appears normal. No bone marrow edema. No acute fracture. Soft tissues: Mild soft tissue swelling. Quadriceps/Patellar tendon/retinaculum: Normal Muscles: Muscle appears grossly unremarkable. A T2 hyperintense lesion is seen involving the deep fat just anterior to the femoral vasculature at the level of the distal femur posteriorly measuring approximately 1.6 x 0.7 x 1.2 cm. ACL:Normal PCL:Normal Medial Meniscus:Normal Lateral Meniscus:Normal MCL:Normal LCL complex: Normal MR/MR knee RT wo con IMPRESSION: MINIMAL JOINT FLUID. NO MRI EVIDENCE OF INTERNAL DERANGEMENT IS SEEN. NO ACUTE FRACTURE IS NOTED. A T2 HYPERINTENSE LESION IS SEEN INVOLVING THE DEEP FAT ANTERIOR TO THE FEMORAL VASCULATURE AT THE LEVEL OF THE DISTAL FEMUR POSTERIORLY MEASURING 1.6 X 0.7 X 1.2 CM. FINDING IS NONSPECIFIC AND COULD REPRESENT A VASCULAR ABNORMALITY SUCH A HEMANGIOMA. ATTENTION ON FOLLOW-UP IS RECOMMENDED. Impression dictated by: Boby Chambers Jr., D.O.03/06/2023 10:07 AM Dictation Location: [place] [address] Transcribed By: [facility] 03/06/23 1007 Dictated By: Boby Chambers Jr, DO 03/06/23 0954 Signed By: 03/06/23 1007 Normal [facility] Vital Signs Date Time Vital Sign Value Performing Clinician Facility 10-18-2023 14:39-0400 Body height 154.94 cm DO Santi Levine Work Phone: [facility] 10-18-2023 14:39-0400 Body mass index (BMI) [Ratio] 25.4 kg/m2 DO Santi Levine Work Phone: [facility] 10-18-2023 14:39-0400 Body temperature 98.3 [degF] DO Santi Levine Work Phone: [facility] 10-18-2023 14:39-0400 Body weight 61.23 kg DO Santi Levine Work Phone: [facility] 10-18-2023 14:39-0400 Diastolic blood pressure 88 mm[Hg] DO Santi Levine Work Phone: [facility] 10-18-2023 14:39-0400 Heart rate 67 /min DO Santi Levine Work Phone: [facility] 10-18-2023 14:39-0400 SaO2% (BldA) [Mass fraction] 97 % DO Santi Levine Work Phone: [facility] 10-18-2023 14:39-0400 Systolic blood pressure 104 mm[Hg] DO Santi Levine Work Phone: [facility] 10-10-2023 15:38-0400 Body height 154.94 cm DO Santi Julianna Work Phone: [facility] 10-10-2023 15:38-0400 Body mass index (BMI) [Ratio] 24.9 kg/m2 DO Santi Julianna Work Phone: [facility] 10-10-2023 15:38-0400 Body weight 59.87 kg DO Santi Julianna Work Phone: [facility] 10-10-2023 15:38-0400 Diastolic blood pressure 76 mm[Hg] DO Santi Julianna Work Phone: [facility] 10-10-2023 15:38-0400 Heart rate 82 /min DO Santi Julianna Work Phone: [facility] 10-10-2023 15:38-0400 SaO2% (BldA) [Mass fraction] 98 % DO Santi Julianna Work Phone: [facility] 10-10-2023 15:38-0400 Systolic blood pressure 122 mm[Hg] DO Santi Julianna Work Phone: [facility] 10-09-2023 10:12-0400 Body height 154.94 cm DO Santi Julianna Work Phone: [facility] 10-09-2023 10:12-0400 Body mass index (BMI) [Ratio] 24.9 kg/m2 DO Santi Julianna Work Phone: [facility] 10-09-2023 10:12-0400 Body weight 59.87 kg DO Santi Julianna Work Phone: [facility] 10-09-2023 10:12-0400 Diastolic blood pressure 80 mm[Hg] DO Santi Julianna Work Phone: [facility] 10-09-2023 10:12-0400 Heart rate 80 /min DO Santi Julianna Work Phone: [facility] 10-09-2023 10:12-0400 SaO2% (BldA) [Mass fraction] 98 % DO Santi Levine Work Phone: [facility] 10-09-2023 10:12-0400 Systolic blood pressure 118 mm[Hg] DO Santi Levine Work Phone: [facility] 08-28-2023 09:08-0400 Body height 154.94 cm [facility] 08-28-2023 09:08-0400 Body mass index (BMI) [Ratio] 24.7 kg/m2 [facility] 08-28-2023 09:08-0400 Body weight 59.53 kg [facility] 08-28-2023 09:08-0400 Diastolic blood pressure 64 mm[Hg] [facility] 08-28-2023 09:08-0400 Heart rate 71 /min [facility] 08-28-2023 09:08-0400 SaO2% (BldA) [Mass fraction] 97 % [facility] 08-28-2023 09:08-0400 Systolic blood pressure 102 mm[Hg] [facility] 07-20-2023 09:35-0400 Body height 154.94 cm DO Santi Levine Work Phone: [facility] 07-20-2023 09:35-0400 Body mass index (BMI) [Ratio] 25.7 kg/m2 DO Santi Levine Work Phone: [facility] 07-20-2023 09:35-0400 Body weight 61.68 kg DO Santi Levine Work Phone: [facility] 07-20-2023 09:35-0400 Diastolic blood pressure 80 mm[Hg] DO Santi Levine Work Phone: [facility] 07-20-2023 09:35-0400 Heart rate 77 /min DO Santi Moralesmer Work Phone: [facility] 07-20-2023 09:35-0400 SaO2% (BldA) [Mass fraction] 98 % DO Santi Levine Work Phone: [facility] 07-20-2023 09:35-0400 Systolic blood pressure 118 mm[Hg] DO Satni Julianna Work Phone: [facility] 06-08-2023 11:19-0400 Body height 154.94 cm DO Santi Moralesmer Work Phone: [facility] 06-08-2023 11:19-0400 Body mass index (BMI) [Ratio] 25.7 kg/m2 DO Santi Moralesmer Work Phone: [facility] 06-08-2023 11:19-0400 Body weight 61.68 kg DO Santi Levine Work Phone: [facility] 06-08-2023 11:19-0400 Diastolic blood pressure 82 mm[Hg] DO Santi Levine Work Phone: [facility] 06-08-2023 11:19-0400 Heart rate 68 /min DO Santi Levine Work Phone: [facility] 06-08-2023 11:19-0400 SaO2% (BldA) [Mass fraction] 99 % DO Santi Levine Work Phone: [facility] 06-08-2023 11:19-0400 Systolic blood pressure 122 mm[Hg] DO Santi Levine Work Phone: [facility] 06-01-2023 10:22-0400 Body height 154.94 cm DO Santi Moralesmer Work Phone: [facility] 06-01-2023 10:22-0400 Body mass index (BMI) [Ratio] 25.7 kg/m2 DO Santi Moralesmer Work Phone: [facility] 06-01-2023 10:22-0400 Body weight 61.68 kg DO Santi Julianna Work Phone: [facility] 06-01-2023 10:22-0400 Diastolic blood pressure 70 mm[Hg] DO Santi Julianna Work Phone: [facility] 06-01-2023 10:22-0400 Heart rate 88 /min DO Santi Julianna Work Phone: [facility] 06-01-2023 10:22-0400 SaO2% (BldA) [Mass fraction] 98 % DO Santi Moralesmer Work Phone: [facility] 06-01-2023 10:22-0400 Systolic blood pressure 120 mm[Hg] DO Santi Julianna Work Phone: [facility] 05-28-2023 10:34-0400 Body height 154.94 cm DO Santi Julianna Work Phone: [facility] 05-28-2023 10:34-0400 Body mass index (BMI) [Ratio] 25.7 kg/m2 DO Santi Julianna Work Phone: [facility] 05-28-2023 10:34-0400 Body weight 61.68 kg DO Santi Julianna Work Phone: [facility] 05-28-2023 10:34-0400 Diastolic blood pressure 80 mm[Hg] DO Santi Julianna Work Phone: [facility] 05-28-2023 10:34-0400 Systolic blood pressure 118 mm[Hg] DO Santi Julianna Work Phone: [facility] 05-08-2023 16:04-0400 Body height 154.94 cm DO Santi Julianna Work Phone: [facility] 05-08-2023 16:04-0400 Body mass index (BMI) [Ratio] 40.6 kg/m2 DO Santi Julianna Work Phone: [facility] 05-08-2023 16:04-0400 Body weight 97.52 kg DO Santi Levine Work Phone: [facility] 05-08-2023 16:04-0400 Diastolic blood pressure 80 mm[Hg] DO Santi Levine Work Phone: [facility] 05-08-2023 16:04-0400 Heart rate 75 /min DO Santi Levine Work Phone: [facility] 05-08-2023 16:04-0400 SaO2% (BldA) [Mass fraction] 98 % DO Santi Levine Work Phone: [facility] 05-08-2023 16:04-0400 Systolic blood pressure 120 mm[Hg] DO Santi Levine Work Phone: [facility] 03-08-2023 15:15-0500 Body height 154.94 cm Santi Levine Other [facility] 03-08-2023 15:15-0500 Body mass index (BMI) [Ratio] 23.62 kg/m2 Santi Levine Other [facility] Other 03-08-2023 15:15-0500 Body weight 56.7 kg Santi Julianna Other [facility] [employer] Other 03-08-2023 15:15-0500 Body weight 56.69 kg DO Santi Levine Work Phone: [facility] 03-08-2023 15:15-0500 Diastolic blood pressure 74 mm[Hg] Santi Julianna Other [facility] 03-08-2023 15:15-0500 Respiratory rate 18 /min Santi Levine Other [facility] Other 03-08-2023 15:15-0500 SaO2% (BldA) [Mass fraction] 99 % Santi Levine Other [facility] Other 03-08-2023 15:15-0500 Systolic blood pressure 122 mm[Hg] Santi Levine Other [facility] 02-23-2023 09:15-0500 Body height 154.94 cm Santi Levine Other [facility] 02-23-2023 09:15-0500 Body mass index (BMI) [Ratio] 23.62 kg/m2 Santi Levine Other [facility] Other 02-23-2023 09:15-0500 Body weight 56.7 kg Santi Levine Other [facility] Other 02-23-2023 09:15-0500 Body weight 56.69 kg DO Santi Moralesmer Work Phone: [facility] 02-23-2023 09:15-0500 Diastolic blood pressure 74 mm[Hg] Santi Levine Other [facility] 02-23-2023 09:15-0500 Respiratory rate 18 /min Santi Levine Other [facility] Other 02-23-2023 09:15-0500 SaO2% (BldA) [Mass fraction] 99 % Santi Levine Other [facility] [employer] Other 02-23-2023 09:15-0500 Systolic blood pressure 116 mm[Hg] Santi Levine Other [facility] 02-08-2023 08:45-0500 Body height 154.94 cm Santi Levine Other [facility] Other 02-08-2023 08:45-0500 Body mass index (BMI) [Ratio] 23.99 kg/m2 Santi Levine Other [facility] Other 02-08-2023 08:45-0500 Body weight 57.61 kg Santi Levine Other [facility] Other 02-08-2023 08:45-0500 Diastolic blood pressure 78 mm[Hg] Santi Levine Other [facility] Other 02-08-2023 08:45-0500 Respiratory rate 18 /min Santi Levine Other [facility] Other 02-08-2023 08:45-0500 SaO2% (BldA) [Mass fraction] 99 % Santi Lveine Other [facility] Other 02-08-2023 08:45-0500 Systolic blood pressure 116 mm[Hg] Santi Levine Other [facility] Other 01-17-2023 15:30-0500 Body height 154.94 cm Santi Levine Other [facility] Other 01-17-2023 15:30-0500 Body mass index (BMI) [Ratio] 23.43 kg/m2 Santi Levine Other [facility] Other 01-17-2023 15:30-0500 Body weight 56.25 kg Santi Levine Other [facility] Other 01-17-2023 15:30-0500 Diastolic blood pressure 70 mm[Hg] Santi Levine Other [facility] Other 01-17-2023 15:30-0500 Respiratory rate 18 /min Santi Levine Other [facility] Other 01-17-2023 15:30-0500 SaO2% (BldA) [Mass fraction] 99 % Santi Levine Other [facility] Other 01-17-2023 15:30-0500 Systolic blood pressure 118 mm[Hg] Santi Moralesmer Other [facility] Other 07-25-2021 12:20-0400 Body height 154.94 cm Rk Osorio Other [facility] Other 07-25-2021 12:20-0400 Body mass index (BMI) [Ratio] 23.05 kg/m2 Rk Osorio Other [facility] Other 07-25-2021 12:20-0400 Body temperature 98.5 [degF] Rk Osorio Other [facility] Other 07-25-2021 12:20-0400 Body weight 55.34 kg Rk Osorio Other [facility] Other 07-25-2021 12:20-0400 Respiratory rate 16 /min Rk Osorio Other [facility] Other 07-25-2021 12:20-0400 SaO2% (BldA) [Mass fraction] 99 % Rk Osorio Other [facility] Other Encounters Encounter Date Encounter Type Care Provider Facility Start: 10-18-2023 End: 10-18-2023 Patient encounter procedure DO Santi Levine Work Phone: [facility] [place] Work Phone: Start: 10-18-2023 End: 10-18-2023 ambulatory DO Santi Deedee MoralesJulianna Work Phone: [facility] Work Phone: Start: 10-18-2023 End: 10-18-2023 ambulatory DO Santi Deedee MoralesJulianna Work Phone: [facility] Work Phone: Start: 10-18-2023 End: 10-18-2023 Patient encounter procedure DO Santi Julianna Work Phone: [facility] [place] Work Phone: Start: 10-18-2023 Non-patient / Non-visit DO Mario Levine Work Phone: [facility] [place] Work Phone: Start: 10-16-2023 ambulatory Santi Moralesmer Facili ty:[facility] Start: 10-16-2023 Registered Recurring DO Ramsesrachel Levine Work Phone: [facility] [address] [facility] Start: 10-10-2023 End: 10-10-2023 ambulatory DO Santi oMralesmer Work Phone: [facility] Work Phone: Start: 10-10-2023 End: 10-10-2023 Patient encounter procedure DO Santi Moralesmer Work Phone: [facility] [place] Work Phone: Start: 10-10-2023 End: 10-10-2023 Patient encounter procedure DO Santi Levine Work Phone: [facility] [place] Work Phone: Start: 10-10-2023 End: 10-10-2023 ambulatory DO Santi Levine Work Phone: [facility] Work Phone: Start: 10-09-2023 End: 10-09-2023 ambulatory DO Santi Levine Work Phone: [facility] Work Phone: Start: 10-09-2023 End: 10-09-2023 Patient encounter procedure DO Santi Levine Work Phone: [facility] Work Phone: Start: 09-27-2023 Registered Recurring DO Savanah tiwari Julianna Work Phone: [facility] Start: 08-28-2023 End: 08-28-2023 ambulatory [facility] Work Phone: Start: 08-28-2023 End: 08-28-2023 Patient encounter procedure [facility] Work Phone: Start: 07-20-2023 End: 07-20-2023 ambulatory DO Santi Levine Work Phone: [facility] Work Phone: Start: 07-20-2023 End: 07-20-2023 Patient encounter procedure DO Santi Levine Work Phone: [facility] [place] Work Phone: Start: 06-08-2023 End: 06-08-2023 ambulatory DO Santi Levine Work Phone: [facility] Work Phone: Start: 06-08-2023 End: 06-08-2023 Patient encounter procedure DO Santi Levine Work Phone: [facility] [place] Work Phone: Start: 06-01-2023 End: 06-01-2023 ambulatory DO Santi Levine Work Phone: [facility] Work Phone: Start: 06-01-2023 End: 06-01-2023 Patient encounter procedure DO Santi Levine Work Phone: [facility] [place] Work Phone: Start: 05-28-2023 End: 05-28-2023 ambulatory DO Santi Levine Work Phone: [facility] Work Phone: Start: 05-28-2023 End: 05-28-2023 Patient encounter procedure DO Santi Levine Work Phone: [facility] Work Phone: Start: 05-08-2023 End: 05-08-2023 ambulatory DO Santi Levine Work Phone: [facility] Work Phone: Start: 05-08-2023 End: 05-08-2023 Patient encounter procedure DO Santi Levine Work Phone: [facility] Work Phone: Start: 04-26-2023 End: 04-26-2023 ambulatory Santi Levine Facility:[facility] Start: 04-26-2023 End: 04-26-2023 Departed Referred DO Santi Levine Work Phone: [facility] Start: 03-22-2023 End: 03-22-2023 ambulatory Santi Levine Other [facility] Other Start: 03-22-2023 Telephone encounter Santi [facility] [place] Start: 03-12-2023 End: 03-12-2023 Patient encounter procedure DO Santi Levine Work Phone: [facility] Work Phone: Start: 03-12-2023 End: 03-12-2023 ambulatory DO Santi Levine Work Phone: [facility] Work Phone: Start: 03-08-2023 End: 03-08-2023 ambulatory Santi Levine Other [facility] Other Start: 03-08-2023 Office outpatient vi sit 15 minutes Santi Levine [facility] Start: 03-08-2023 End: 03-08-2023 Patient encounter procedure DO Santi Levine Work Phone: [facility]- Start: 03-07-2023 End: 03-07-2023 ambulatory Santi Levine Other [facility] Other Start: 03-07-2023 Telephone encounter Santi Levine [facility] Start: 03-05-2023 End: 03-05-2023 Patient encounter procedure DO Santi Levine Work Phone: [facility] Main [place] Work Phone: Start: 03-05-2023 End: 03-05-2023 ambulatory DO Santi Levine Work Phone: [facility] Work Phone: Start: 02-23-2023 End: 02-23-2023 ambulatory Santi Levine Other [facility] Other Start: 02-23-2023 Office outpatient vi sit 15 minutes Santi Levine [facility] Start: 02-23-2023 Telephone encounter aSnti Levine [facility] Start: 02-23-2023 End: 02-23-2023 Patient encounter procedure DO Santi Levine Work Phone: [facility] [place] Work Phone: Start: 02-08-2023 End: 02-08-2023 ambulatory Santi Levine Other [facility] Other Start: 02-08-2023 Office outpatient vi sit 15 minutes Santi Levine [facility] [place] Start: 02-08-2023 Telephone encounter Santi [facility] [place] Start: 02-08-2023 End: 02-08-2023 Patient encounter procedure DO Santi Levine Work Phone: [facility] [place] Work Phone: Start: 02-05-2023 End: 02-05-2023 ambulatory Santi Levine Other [facility] Other Start: 02-05-2023 Telephone encounter Santi [facility] [place] Start: 2023 End: 2023 ambulatory Santi Levine Other [facility] Other Start: 2023 Telephone encounter Santi [facility] [place] Start: 01-17-2023 End: 01-17-2023 ambulatory Santi Levine Other [facility] Other Start: 01-17-2023 Encounter for genera l adult medical examination without abnormal findings Santi Levine [facility] [place] Start: 01-17-2023 Periodic preventive med est patient 40-64yrs Santi Levine [facility] [place] Start: 01-17-2023 End: 01-17-2023 Patient encounter procedure DO Santi Levine Work Phone: [facility] [place] Work Phone: Start: 12-04-2022 End: 12-04-2022 ambulatory Ordering Provider Other [facility] Other Start: 12-04-2022 Telephone encounter Ordering Provide r [facility] Jasmin Lucas Start: 07-25-2021 End: 07-25-2021 ambulatory Rk Osorio Other [facility] Other Start: 07-25-2021 Office outpatient ne w 20 minutes Rk Osorio [facility] [address] Procedures Date Procedure Procedure Detail Performing Clinician Start: 03-12-2023 Screening mammograph y of bilateral breasts DO Santi Levine Work Phone: Start: 03-05-2023 MRI of right knee DO Berta Levine Work Phone: Plan of Treatment Date Care Activity Detail Author Start: 10-18-2023 Bacteria identified in Urine by Culture [facility] Start: 10-10-2023 Comprehensive metabo lic 1999 panel - Serum or Plasma [facility] Start: 10-10-[address] [facility] Start: 03-12-2023 Screening mammograph y of bilateral breasts MM screening mammo BI w/CAD [facility] Start: 03-05-2023 MR Knee - right WO contrast [facility] Start: 03-05-2023 MRI of right knee MR knee RT wo con [facility] Albumin/Globulin ratio [facility] Anion gap measurement [facility] Basophils [#/volume] in Blood by Automated count [facility] Basophils/100 leukoc ytes in Blood by Automated count [facility] Calculated LDL ary sterol level [facility] Cholesterol.total/Ch oleste rol in HDL [Mass Ratio] in Serum or Plasma [facility] Comprehensive metabo lic 1999 panel - Serum or Plasma [facility] Eosinophils/100 leuk ocytes in Blood by Automated count [facility] Erythrocyte distribu tion width [Ratio] by Automated count [facility] Erythrocytes [#/volu me] in Blood [facility] Globulin [Mass/volum e] in Serum [facility] Hematocrit [Volume Fraction] of Blood [facility] Hemoglobin [Mass/vol ume] in Blood [facility] Leukocytes [#/volume ] corrected for nucleated erythrocytes in Blood by Automated coun [facility] Leukocytes [#/volume ] in Blood [facility] Lymphocytes [#/volum e] in Blood by Automated count [facility] Lymphocytes/100 leuk ocytes in Blood by Automated count [facility] MCH [Entitic mass] b y Automated count [facility] MCHC [Mass/volume] b y Automated count [facility] MCV [Entitic volume] by Automated count [facility] Monocytes [#/volume] in Blood by Automated count [facility] Monocytes/100 leukoc ytes in Blood by Automated count [facility] Neutrophils [#/volum e] in Blood by Automated count [facility] Neutrophils/100 leuk ocytes in Blood by Automated count [facility] Nucleated erythrocyt es [Presence] in Blood by Automated count [facility] Platelet mean volume [Entitic volume] in Blood by Automated count [facility] Platelets [#/volume] in Blood [facility] VLDL cholesterol measurement [facility] Payers Date Payer Category Payer Unknown [id number] 2023 Self-pay 2023 Unknown [id number] Unknown [id number] Unknown [id number] 2.16.8 [id number] Unknown [id number] Unknown [id number] 2.16.8 [id number] Unknown [id number] 2.16.8 [id number] Unknown [id number] 2.16.8 [id number] Unknown [id number] 2..8 [id number] Social History Date Type Detail Facility Sex Assigned At [facility] Other Start: 1970 Sex Assigned At Female F [facility] Start: 10-09-2023 Tobacco smoking stat us NHIS Never smoked tobacco (finding) [facility] Clinical Notes 07-25-2021 to 03-08-2023 Note Date & Type Note Facility 03-08-2023 Evaluation note Encounter Date Diagnosis Assessment Notes Feb, Pain in right knee (ICD-10 - M25.561) MRI reviewed with the patient and there is no definitive abnormality in the knee joint on the MRI and no definitive meniscus injury. In a couple of the views there does appear to be increased signal in the posterior lateral corner which could represent a small injury at this location but is not clear on the MRI that is a true meniscus injury. Because of this I did discuss with the patient about doing a therapeutic/shakeel gnostic lateral knee joint injection to see if we can localize exactly where her pain is coming from and hopefully help improve it. Patient is in agreement with this and the injection was performed in the office today under ultrasound guidance. Aftercare instruction detail with patient. She will call with how this injection did for her within the next week. 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 This was seen on the ultrasound as well as on the MRI that was performed in May. It is my opinion that patient will likely need intervention with PRP given the extensive damage to the common extensor tendon as well at this the length of time this is gone on as well as her symptoms. Will give nitroglycerin patches to see if she tolerates this treatment as this can increase blood flow to the area and is recommended for chronic tendinosis. Patient was given education on potential side effects and is to call right away if she has any problems with the nitro patches. In the meantime we will work to get her approved for PRP as it is unlikely the nitro patches will completely heal this given the extensive damage as well as the Nitropatch is can take 3 to 6 months and patient is having significant debility. Feb, Strain of other extensor muscle, fascia and tendon at forearm level, left arm, subsequent encounter (ICD-10 - S56.512D) Feb, Tendonosis (ICD-10 - M67.80) [facility] Other 12-21-2023 Evaluation note* Encounter Date Diagnosis Assessment Notes Treatment Notes Treatment Clinical Notes Jan, Pain in right knee (ICD-10 - M25.561) Based on ultrasound exam findings and physical exam findings there is concern for posterior lateral meniscus injury. X-rays were reviewed and are negative for any significant arthritic changes in the knee. Patient did have increased activity 6 months ago when the pain started that is concerning for injury to the meniscus. Patient is to have an MRI and this was ordered today and we will contact her with the results. Plan will be based off of MRI results. Jan, Other chronic pain (ICD-10 - G89.29) Jan, Positive Omid test of right knee, initial encounter (ICD-10 - S83.206A) [facility] Other 11-29-2023 Evaluation note* Encounter Date Diagnosis Assessment Notes Treatment Notes Treatment Clinical Notes Dec, Well adult exam (ICD-10 - Z00.00) 52-year-old female who has a couple chronic medical conditions that she takes medication for that seems to be working well for her. She does have chronic back pain and she was given an exercise handout for core strengthening as well as instructed to take the meloxicam that Dr. Mcdonough gave her to see how this helps with her back pain. If is not helping enough we will do a further workup on it. Her knee pain is interesting in that it is in the posterior lateral corner and is hard to tell if it is in the joint space or just below the joint space. Will get a knee x-ray and contact her with the results of it. If the knee x-ray does not show anything significant would like to get her back in the office for an ultrasound examination of the knee to try and pinpoint exactly where her pain is coming from. She does need screening mammogram and this was ordered for her. She did have lab work a year ago and this was reviewed and is all within normal limits. She also had a Cologuard last year that was negative. Dec, Chronic insomnia (ICD-10 - F51.04) Dec, DJD (degenerative joint disease), lumbosacral (ICD-10 - M47.817) Dec, Acute pain of right knee (ICD-10 - M25.561) Dec, Screening mammogram for breast cancer (ICD-10 - Z12.31) [facility] Other 06-06-2022 Evaluation note* Encounter Date Diagnosis Assessment Notes Treatment Notes Treatment Clinical Notes Jul, Hordeolum externum of left upper eyelid (ICD-10 - H00.014) Apply ointment as prescribed. Apply warm compresses as prescribed. Follow up with eye doctor if symptoms have not improved in 7-10 days. Sign and symptoms consistent with hordeolum. No evidence of periorbital cellulitis, orbital cellulitis, dacryocystitis, or retrobulbar abscess as there has been no recent trauma, no induration of periorbital region, PERRLA, no pain with EOMI, and that the conunctiva is normal.. Exam is not consistent with conjunctivitis. Exam is consistent with hordeolum. Will treat with warm compresses and erythromcyin ointment. Advised her to follow up with eye doctor if you are still having symptoms in 5-7 days. [facility] Other Evaluation noteNo [facility] [employer] Other Evaluation noteNo assessment information available [facility] Work Phone: Evaluation note* Diagnosis Onset Date Resolution Status Lateral epicondylitis of left elbow chronic [facility] Work Phone: Evaluation note* Diagnosis Onset Date Resolution Status Lateral epicondylitis of left elbow chronic Lateral epicondylitis of left elbow chronic [facility] Work Phone: Evaluation note* Diagnosis Onset Date Resolution Status Lateral epicondylitis of left elbow chronic Lateral epicondylitis of left elbow chronic Pain of left great toe nonea ctive Neuropathic pain noneactive Lateral epicondylitis of left elbow chronic [facility] Work Phone: Evaluation note* Diagnosis Onset Date Resolution Status Pain of left great toe nonea ctive Neuropathic pain noneactive Lateral epicondylitis of left elbow chronic Lateral epicondylitis of left elbow chronic [facility] Work Phone: Evaluation note* Diagnosis Onset Date Resolution Status Lateral epicondylitis of left elbow chronic Lateral epicondylitis of left elbow chronic Chronic insomnia chronic DJD (degenerative joint disease), lumbosacral chronic SI (sacroiliac) joint inflammation noneactive Well adult noneactive Changing nevus noneactive Menopausal hot flushes nonea txive [facility] Work Phone: Evaluation note* Diagnosis Onset Date Resolution Status Lateral epicondylitis of left elbow chronic Lateral epicondylitis of left elbow chronic Chronic insomnia chronic DJD (degenerative joint disease), lumbosacral chronic SI (sacroiliac) joint inflammation noneactive Well adult noneactive Changing nevus noneactive Menopausal hot flushes nonea ctive Changing nevus noneactive [facility] Work Phone: Evaluation note* Diagnosis Onset Date Resolution Status Lateral epicondylitis of left elbow chronic Lateral epicondylitis of left elbow chronic Chronic insomnia chronic DJD (degenerative joint disease), lumbosacral chronic SI (sacroiliac) joint inflammation noneactive Well adult noneactive Changing nevus noneactive Menopausal hot flushes nonea ctive Changing nevus noneactive Suspected UTI noneactive [facility] Work Phone: Evaluation note* Diagnosis Onset Date Resolution Status Lateral epicondylitis of left elbow chronic Chronic insomnia chronic DJD (degenerative joint disease), lumbosacral chronic SI (sacroiliac) joint inflammation noneactive Well adult noneactive Changing nevus noneactive Menopausal hot flushes nonea ctive Changing nevus noneactive Suspected UTI noneactive [facility] Work Phone: History general Narrative - Reported* Type Description Date Medical History degenerative disease lumbosacral spine Medical History insomnia Surgical History Carapl tunnel Surgical History Golfer's elbow Surgical History Tennis elbow [facility] Other Chief Complaint and Reason for Visit Chief Complaint m25.561 g89.29 s83.2 06a Chief Complaint Est Care Us Exam L Elbow m25.561 g89.29 s83.206a Screening Chief Complaint L Elbow m25.561 g89.29 s83.206a Go Over Mri Results Z13.6 Unknown discuss PRP Reason for Visit Lateral epicondyliti s of left elbow Chief Complaint m25.561 g89.29 s83.2 06a Go Over Mri Results Z13.6 Unknown discuss PRP Left Elbow Reason for Visit Lateral epicondyliti s of left elbow Lateral epicondylitis of left elbow Chief Complaint m25.561 g89.29 s83.2 06a Go Over Mri Results Z13.6 Unknown discuss PRP Left Elbow left elbow Reason for Visit Lateral epicondyliti s of left elbow Lateral epicondylitis of left elbow Chief Complaint Z13.6 Unknown discuss PRP Left Elbow left elbow Possible stitch left in left foot Reason for Visit Lateral epicondyliti s of left elbow Lateral epicondylitis of left elbow Chief Complaint Unknown discuss PRP Left Elbow left elbow Possible stitch left in left foot left Elbow not improved after prp Reason for Visit Lateral epicondyliti s of left elbow Lateral epicondylitis of left elbow Pain of left great toe Neuropathic pain Lateral epicondylitis of left elbow Chief Complaint left elbow Possible stitch left in left foot left Elbow not improved after prp left elbow follow up Reason for Visit Pain of left great t oe Neuropathic pain Lateral epicondylitis of left elbow Lateral epicondylitis of left elbow Chief Complaint left Elbow not impro emily after prp left elbow follow up elbow Wellness/work physical Reason for Visit Lateral epicondyliti s of left elbow Lateral epicondylitis of left elbow Chronic insomnia DJD (degenerative joint disease), lumbosacral SI (sacroiliac) joint inflammation Well adult Changing nevus Menopausal hot flushes Chief Complaint left Elbow not impro emily after prp left elbow follow up elbow Wellness/work physical Lesion removal Reason for Visit Lateral epicondyliti s of left elbow Lateral epicondylitis of left elbow Chronic insomnia DJD (degenerative joint disease), lumbosacral SI (sacroiliac) joint inflammation Well adult Changing nevus Menopausal hot flushes Changing nevus Chief Complaint left Elbow not impro emily after prp left elbow follow up Wellness/work physical changing skin nevolis Lesion removal elbow Amb Documentation possible UTI Reason for Visit Lateral epicondyliti s of left elbow Lateral epicondylitis of left elbow Chronic insomnia DJD (degenerative joint disease), lumbosacral SI (sacroiliac) joint inflammation Well adult Changing nevus Menopausal hot flushes Changing nevus Suspected UTI Chief Complaint left elbow follow up Wellness/work physical changing skin nevolis Lesion removal elbow Amb Documentation possible UTI Increased frequency of urination Reason for Visit Lateral epicondyliti s of left elbow Chronic insomnia DJD (degenerative joint disease), lumbosacral SI (sacroiliac) joint inflammation Well adult Changing nevus Menopausal hot flushes Changing nevus Suspected UTI Advance Directives No Advanced Directives Records Found Advance Directive Response Recorded Date/ Time Advance Directives No February 22, 2023 4:35pm Advance Directive Response Recorded Date/ Time Advance Directives No February 22, 2023 5:35pm Summary Purpose Family History No Family History Records Found Additional Source Comments REASON FOR VISIT (unrecogniz ed section and content) eye iritationnew ptest carer efill/resultsworkmans compUS examWorkmen's Comp.L elbowBillingMRI resultsgo over MRI resultsMammogram results Care Teams (unrecognized sec tion and content) Team Status: Active Member Role Status Dates Santi Levine , DO Primary Care Provider Active Team Status: Inactive Member Role Status Dates Santi Levine , DO Primary Care Provider, Attending Provider Active Team Status: Inactive Member Role Status Dates Santi Levine , DO Attending Provider Active Start: January 17, 2023 End: January 17, 2023 Team Status: Inactive Member Role Status Dates Santi Levine DO Attending Provider Active Start: February 08, 2023 End: February 08, 2023 Team Status: Inactive Member Role Status Dates Satni Levine , Attending Provider Active Start: February 23, 2023 End: February 23, 2023 Team Status: Inactive Member Role Status Dates Santi Levine DO Primary Care Provi sudeep, Attending Provider Active Start: March 05, 2023 End: March 05, 2023 Team Status: Inactive Member Role Status Dates Santi Levine DO Primary Care Provi sudeep, Attending Provider Active Start: March 12, 2023 End: March 12, 2023 Team Status: Inactive Member Role Status Dates Santi N Julianna , DO Attending Provider Active Start: March 08, 2023 End: March 08, 2023 Team Status: Inactive Member Role Status Dates Santi Levine , DO Primary Care Provider Active Start: April 26, 2023 End: April 26, 2023 Syed Mcdonough DPM MS Attending Provider Active Start: April 26, 2023 End: April 26, 2023 Team Status: Inactive Member Role Status Dates Santi Levine , DO Primary Care Provi sudeep, Attending Provider Active Start: May 08, 2023 End: May 08, 2023 Team Status: Inactive Member Role Status Dates Santi Levine , DO Primary Care Provi sudeep, Attending Provider Active Start: May 28, 2023 End: May 28, 2023 Team Status: Inactive Member Role Status Dates Santi Levine , DO Primary Care Provi sudeep, Attending Provider Active Start: June 01, 2023 End: June 01, 2023 Team Status: Inactive Member Role Status Dates Santi Levine , DO Primary Care Provider Active Start: June 08, 2023 End: June 08, 2023 Jameson Wise APRN Attending Provider Active Start: June 08, 2023 End: June 08, 2023 Team Status: Inactive Member Role Status Dates Santi Levine , DO Primary Care Provi sudeep, Attending Provider Active Start: July 20, 2023 End: July 20, 2023 Team Status: Inactive Member Role Status Dates Santi Levine , DO Primary Care Provi sudeep, Attending Provider Active Start: August 28, 2023 End: August 28, 2023 Team Status: Active Member Role Status Dates Santi Levine , DO Primary Care Provi sudeep, Attending Provider Active Start: September 27, 2023 Team Status: Inactive Member Role Status Dates Santi Levine , DO Primary Care Provi sudeep, Attending Provider Active Start: October 09, 2023 End: October 09, 2023 Team Status: Active Member Role Status Dates Santi Levine , DO Primary Care Provi sudeep, Attending Provider Active Start: October 10, 2023 Team Status: Inactive Member Role Status Dates Santi Levine , DO Primary Care Provi sudeep, Attending Provider Active Start: October 10, 2023 End: October 10, 2023 Team Status: Active Member Role Status Dates Santi Levine , DO Primary Care Provi sudeep, Attending Provider Active Start: October 16, 2023 Team Status: Active Member Role Status Dates Santi Levine , DO Primary Care Provider Active Start: October 18, 2023 Jennifer Lua LPN Attending Provider Active Start: October 18, 2023 Team Status: Inactive Member Role Status Dates Santi Deedee Levine , DO Primary Care Julio César sheets, Attending Provider Active Start: October 18, 2023 End: October 18, 2023 Goals (unrecognized section and content) Goals may be documented in a n alternate section INFORMATION SOURCE (unrecogn ized section and content) DATE CREATED AUTHOR 10/27/2023 [facility] FOR RECORDS PERTAINING TO PATIENTS WHO ARE OR HAVE BEEN ENROLLED IN A CHEMICAL DEPENDENCY/SUBSTANCEABUSE PROGRAM, SOME INFORMATION MAY BE OMITTED. This clinical summary was aggregated from multiple sources. Caution should be exercised in using it in the provision of clinical care. This summary normalizes information from multiple sources, and as a consequence, information in this document may materially change the coding, format and clinical context of patient data. In addition, data may be omitted in some cases. CLINICAL DECISIONS SHOULD BE BASED ON THE PRIMARY CLINICAL RECORDS. [facility] [employer] provides no warranty or guarantee of the accuracy or completeness of information in this document.
== END 2023-12-28 12:17 | disposition home or self-care (01) ==
LOC: RAD 12:22
PROVIDERS: Visit Provider Podiatrist Foot & Ankle Surgery
DX: M79.672 Pain in left foot (principal); M25.572 Pain in left ankle and joints of left foot
CPT/HCPCS: 73610; 73630